=== PATIENT | female | born 1985 | race African-American/Black ===

== ENCOUNTER 2025-08-29 04:50 | Inpatient (IN) | payer SELFPAY ==
[~2025-08-29] VITALS: Ht 167.6 cm; Wt 93.6 kg
--- NOTE | 2025-08-29 04:56 | NUR ---
REPORT TO DELLA RN
[2025-08-29] MEDS: 0.9%NACL 1000ML 1,000 ML IV ONE (05:16)
[2025-08-29 05:26] LABS: IMMATURE GRANULOCYTE ABSOLUTE 0.09 K/uL (0-1); NUCLEATED RED BLOOD CELLS 0.0 % (0.0-0.19); PLATELET COUNT (AUTO) 211 K/uL (130-400); RED BLOOD CELL COUNT(AUTO) 4.21 MIL/uL (4.00-5.50); RED CELL DISTRIBUTION WIDTH 16.5 % (11.0-15.5); WHITE BLOOD COUNT (AUTO) 15.4 K/uL (4.8-10.8)
[2025-08-29 05:45] LABS: ASPARTATE AMINOTRANSFERASE 36.0 U/L (10-37); CREATININE 0.8 mg/dL (0.5-1.0); GLOMERULAR FILTR. RATE CALC 97.0 mL/min (>90); GLUCOSE,RANDOM 152.0 mg/dL (70-105); SODIUM SERUM 131.0 mmol/L (136-145); TOTAL PROTEIN, SERUM 7.8 g/dL (6.0-8.3); UREA NITROGEN, BLOOD 9.0 mg/dL (7-18)
--- NOTE | 2025-08-29 05:58 | ERN ---
General Chief Complaint: Abdominal Pain Stated Complaint: ABD PAIN, CHILLS, N/V Time Seen by MD: 04:52 Source: patient History of Present Illness Initial Comments Patient is a 39-year-old female coming in complaining of right pain. Per patient this pain began two days ago. She states that the pain progressively getting worse. Allergies: Coded Allergies: No Known Allergies (Unverified Allergy, Unknown, 08/29/25) Past Medical History Past Medical History: CVA, Diabetes-Type II, High Cholesterol, Hypertension Past Surgical History: Bariatric Surgery, ROS Dictation CONSTITUTIONAL: No chills, no fever, no weakness, no diaphoresis, no malaise. HEAD/FACE: No signs of trauma. EENT: No eye pain, no blurred vision, no tearing, no double vision, no ear pain, no ear discharge, no nose pain, no nasal congestion, no throat pain, no throat swelling, no mouth pain. RESPIRATORY: No cough, no orthopnea, no SOB, no stridor, no wheezing. CARDIOVASCULAR: No chest pain, no edema, no palpitations, no syncope. GASTROINTESTINAL/ABDOMINAL: abdominal pain, no constipation, no diarrhea, nausea, no vomiting. GENITOURINARY: No abnormal discharge, no dysuria, no frequent urination, no hematuria. No complaints of pain in the genitals. MUSCULOSKELETAL: No back pain, no gout, no joint pain, no joint swelling, no muscle pain, no muscle stiffness, no neck pain. INTEGUMENTARY: No change in color, no change in hair/nails, no dryness, no lesion, no lumps, no rash. NEUROLOGICAL/PSYCH: No anxiety, not depressed, no emotional problem, no headache, no numbness, no pre-existing deficit, no history of seizures, no tremors, no weakness. HEMATOLOGIC/LYMPHATIC: Not anemic, no history of blood clots, no apparent bleeding, no bruising, glands not swollen. All Systems Negative, Except as Noted. Physical Exam Physical Exam Dictation VITAL SIGNS: Reviewed. GENERAL APPEARANCE: Alert, oriented x3, no acute distress, obese. HEAD AND FACE: Non-traumatic. EYES: PERRL, pink conjunctivas, eyelid no trauma, anterior chamber clear. EARS: Pinnas intact and no signs of trauma or erythema. Ear canals clear and no discharge. TMs no erythema. NOSE: No discharge, no bleeding. OROPHARYNX: Mouth normal, teeth no caries, tongue pink. Pharynx clear, no erythema. Tonsils no exudates, no abscesses noted. Mucous membrane moist. NECK: Supple, non-tender, no thyromegaly, no masses, no JVD, no bruits. BREAST: Deferred. CHEST: No tenderness, no crepitus, no paradoxical movement, no retractions. LUNGS: Clear, well-ventilated, symmetric, no rales, no wheezing, no rhonchi, no stridor, good breath sounds bilaterally. HEART: Regular rate, regular rhythm, no murmur, no gallops. VASCULAR: No peripheral edema. ABDOMEN: Soft, positive bowel sounds, nondistended, no guarding, ruq tenderness, no rebound, no masses no hepatomegaly, no splenomegaly, no Lopez's sign, no hernias. RECTAL: Deferred. GENITAL: Deferred. NEUROLOGICAL: Normal speech, gross motor function intact, gross sensory function intact. MUSCULOSKELETAL: Neck nontender, full range of motion, back nontender, full range of motion. EXTREMITIES: Nontender, full range of motion. SKIN: Color pink, dry, no turgor, no rash, no lacerations, no abrasions, no contusions. LYMPHATICS: Deferred. Results Laboratory and Microbiology Lab and Micro Result Laboratory Tests Test 08/29/25 04:56 08/29/25 05:06 08/29/25 05:09 Magnesium Level 1.50 mg/dL (1.80-2.40) L White Blood Count 15.4 K/uL (4.8-10.8) H Red Blood Count 4.21 MIL/uL (4.00-5.50) Hemoglobin 14.5 g/dL (12.0-16.0) Hematocrit 40.9 % (36-48) Mean Corpuscular Volume 97.1 fL (79-99) Mean Corpuscular Hemoglobin 34.4 pg (27.0-33.0) H Mean Corpuscular Hemoglobin Concent 35.5 g/dL (32.0-36.0) Red Cell Distribution Width 16.5 % (11.0-15.5) H Platelet Count 211 K/uL (130-400) Mean Platelet Volume 10.4 fL (7.5-10.5) Immature Granulocyte % (Auto) 0.6 % (0-1) Neutrophils (%) (Auto) 71.7 % (40.0-77.0) Lymphocytes (%) (Auto) 19.5 % (21.0-51.0) L Monocytes (%) (Auto) 7.6 % (3.0-13.0) Eosinophils (%) (Auto) 0.3 % (0.0-8.0) Basophils (%) (Auto) 0.3 % (0.0-5.0) Neutrophils # (Auto) 11.0 K/uL (1.8-7.7) H Lymphocytes # (Auto) 3.0 K/uL (1.0-4.8) Monocytes # (Auto) 1.2 K/uL (0.1-1.0) H Eosinophils # (Auto) 0.05 K/uL (0.00-0.70) Basophils # (Auto) 0.04 K/uL (0.00-0.20) Absolute Immature Granulocyte (auto 0.09 K/uL (0-1) Nucleated Red Blood Cells 0.0 % (0.0-0.19) Sodium Level 131 mmol/L (136-145) L Potassium Level 3.0 mmol/L (3.5-5.1) *L Chloride Level 91 mmol/L (101-111) L Carbon Dioxide Level 30 mmol/L (21-32) Blood Urea Nitrogen 9 mg/dL (7-18) Creatinine 0.8 mg/dL (0.5-1.0) Glomerular Filtration Rate Calc 97 mL/min (>90) Random Glucose 152 mg/dL (70-105) H Total Calcium 9.0 mg/dL (8.5-10.1) Total Bilirubin 1.7 mg/dL (0.2-1.0) H Aspartate Amino Transf (AST/SGOT) 36 U/L (10-37) Alanine Aminotransferase (ALT/SGPT) 34 U/L (12-78) Alkaline Phosphatase 75 U/L (50-136) Total Protein 7.8 g/dL (6.0-8.3) Albumin 3.6 g/dL (3.5-5.0) Lipase 178 U/L (16-77) H Urine Color DARK-YELLOW (YELLOW) Urine Appearance CLEAR (CLEAR) Urine pH 6.0 (5.0-8.0) Urine Specific [place] 1.038 (1.001-1.031) Urine Protein 20 mg/dL (NEGATIVE) H Urine Glucose (UA) NEGATIVE mg/dL (NEGATIVE) Urine Ketones 5 mg/dL (NEGATIVE) H Urine Occult Blood NEGATIVE (NEGATIVE) Urine Nitrate NEGATIVE (NEGATIVE) Urine Bilirubin 0.5 mg/dL (NEGATIVE) H Urine Urobilinogen 4.0 mg/dL (0.2-1.0) H Urine Leukocyte Esterase NEGATIVE Christiano/uL Urine RBC 0-1 /HPF (0-1) Urine WBC 2-5 /HPF (0-1) H Urine Squamous Epithelial Cells RARE /HPF (0-2) Urine Bacteria RARE /HPF (None Seen) Urine Hyaline Casts 2-5 /LPF (0-1 /LPF) H Urine Other Casts 1 /LPF (None Seen) Urine HCG, Qualitative NEGATIVE (NEGATIVE) Labs Reviewed?: Yes EKG/XRAY/US/CT/MRI Ultrasound Comment Right upper quadrant- distended gallbladder with cholelithiasis MDM MDM: Differential diagnosis:cholecystitis, ruq pain , Rationale: Tests considered and ordered secondary to shared decision making include: Previous outside records reviewed: Old ER visits. Risk of complication and/or morbidity or mortality of patient management: None Medications-Per medication reconciliation Need for hospitalization: Patient does meet criteria for hospitalization. Need for emergency major/minor surgery: No There are no social concerns with this patient. Prescription drug management Prescriptions will include symptomatic care Patient's prior external medical records from other ER visits were reviewed by me as indicated. Prior testing and results from previous visits were reviewed. Prior tests were taken into account with medical decision making and resource utilization, independent historian/historians were used to obtain complete medical history. I independently interpreted the test that were performed, results were reviewed by me and considered findings on radiology if ordered. Medical management and examination interpretation discussions were had by me with other qualified healthcare professionals as indicated for the patient's care. Patient will be admitted under the care of hospitalist group ED Course Orders Procedure Category Date Status Time Cbc With Differential LAB 08/29/25 Complete 04:57 Comprehensive LAB 08/29/25 Complete Metabolic Panel 04:57 ,Urine Test LAB 08/29/25 Complete 04:57 Urinalysis Profile LAB 08/29/25 Complete 04:57 Us Abdominal Ruq\Ltd US 08/29/25 Resulted 04:57 Lipase LAB 08/29/25 Complete 04:57 Pantoprazole 40mg Inj PHA 08/29/25 Complete (Protonix 40mg Inj 05:30 0.9%Nacl 1000ml (Ns PHA 08/29/25 Complete 1000ml) 05:30 Potassium Bicarb/Cit PHA 08/29/25 Complete Ac 25meq (K-Lyte Ta 06:00 Magnesium LAB 08/29/25 Complete 05:51 Zosyn 3.375gm+Ns 50ml PHA 08/29/25 Complete (Zosyn 3.375gm+Ns 06:00 Ondansetron 4mg Inj PHA 08/29/25 Complete (Zofran 4mg Inj) 06:00 Hydromorphone 0.5mg PHA 08/29/25 Complete Syg (Dilaudid 0.5mg 06:00 Blood Cult PINEDA 08/29/25 In Process 06:17 Current Medications Medications (Trade) Dose Ordered Sig/Loretta Route PRN Reason Start Time Stop Time Status Last Admin Dose Admin Hydromorphone HCl (DiLAUDid 0.5MG INJ) 0.5 mg ONCE ONCE IM 08/29/25 06:00 08/29/25 06:01 DC 08/29/25 06:02 Ondansetron HCl (zoFRAN 4MG INJ) 4 mg ONCE ONCE IVP 08/29/25 06:00 08/29/25 06:01 DC 08/29/25 06:01 Pantoprazole Sodium (PROTonix 40MG INJ) 40 mg ONCE ONCE IVP 08/29/25 05:30 08/29/25 05:31 DC 08/29/25 05:16 Piperacillin Sod/ Tazobactam Sod (Zosyn 3.375gm+NS 50ml) 3.375 gm ONCE ONCE IV 08/29/25 06:00 08/29/25 06:01 DC Potassium Bicarbonate (K-Lyte Tablet Eff 25 Meq Tablet.eff) 50 meq ONCE ONCE PO 08/29/25 06:00 08/29/25 06:01 DC 08/29/25 06:01 Sodium Chloride 1,000 ml @ 0 mls/hr ONCE ONCE IV 08/29/25 05:30 08/29/25 05:31 DC 08/29/25 05:16 Vital Signs Date Time Temp Pulse Resp B/P (MAP) Pulse Ox O2 Delivery O2 Flow Rate FiO2 08/29/25 06:00 98.2 104 22 154/95 99 Room Air* 0 21 08/29/25 04:52 98.4 120 20 142/87 100 Room Air DX & DISP Disposition: Inpatient Decision to Admit Time: 06:51 Departure Impression: Primary Impression: Cholecystitis Additional Impression: Cholelithiasis Condition: Stable Referrals: NONE (PCP) ЕКАТЕРИНА MARTINES MD Aug 29, 2025 05:58
[2025-08-29] MEDS: ZOSYN 3.375GM +NS 50ML IV ONE (06:01)
[2025-08-29 06:21] LABS: APPEARANCE,URINE CLEAR (CLEAR); GLUCOSE, URINE (UA) NEGATIVE (NEGATIVE); LEUKOCYTE ESTERASE ,URINE NEGATIVE Leu/uL (NEGATIVE); NITRATE,URINE NEGATIVE (NEGATIVE); OCCULT BLOOD,URINE NEGATIVE (NEGATIVE)
[2025-08-29 06:30] LABS: HCG,QUALITATIVE URINE NEGATIVE (NEGATIVE)
[2025-08-29 06:31] LABS: ADD UA MICROSCOPIC YES
[2025-08-29 06:32] LABS: OTHER CASTS, URINE 1 /LPF (None Seen); SQUAMOUS EPITHELIAL CELL,UR RARE /HPF (0-2)
--- NOTE | 2025-08-29 06:47 | HMCIMG ---
EXAM: US Abdomen, Right Upper Quadrant. CLINICAL HISTORY: Abdominal Pain TECHNIQUE: Right upper quadrant sonography performed with image documentation. COMPARISON: None provided. FINDINGS: The evaluation is limited due to bowel gas. LIVER: The liver is enlarged, measuring 19.2 cm in length, and demonstrates diffuse increased echogenicity, suggestive of fatty infiltration. The main portal vein is patent and demonstrates hepatopetal flow. GALLBLADDER: The gallbladder is distended and demonstrates tiny echogenic foci, which may represent sludge/sludge balls or tiny calculi. The gallbladder wall is within normal limits, measuring 2 mm. No pericholecystic fluid is demonstrated. The sonographic Lopez's sign is positive as per the Technologist's note. COMMON BILE DUCT: No dilation. Measures 5 mm. PANCREAS: The pancreas is obscured by bowel gas. RIGHT KIDNEY: Unremarkable. Normal renal contours. No renal mass or calculus. No hydronephrosis. Right kidney measures 10.7 x 3.7 x 5.1 cm. IMPRESSION: A distended gallbladder with sludge or tiny calculi without sonographic features of acute cholecystitis. Positive sonographic Lopez sign as per the Technologist's note, of unclear significance. Suggest clinical correlation, follow-up, or further evaluation as clinically indicated. Hepatomegaly with moderate fatty change. /[place]
[2025-08-29] MEDS ORDERED: DEXTROSE 50%-WATER 50 ML DISP.SYRIN IV PRN (07:00)
[2025-08-29] MEDS ORDERED: PoTASSium chl 10% ELIXIR 20MEQ 20 MEQ/15 ML UDCUP PO PRN (07:00)
[2025-08-29] MEDS ORDERED: GLUCAGON 1MG KIT 1 MG ML IM PRN (07:00)
--- NOTE | 2025-08-29 07:32 | NUR ---
REPORT RECEIVED FROM HEAVEN WOLF
--- NOTE | 2025-08-29 07:34 | NUR ---
DR SALCEDO CURRENTLY AT BEDSIDE.
[2025-08-29 07:57] LABS: AMPHET/METH SCREEN,URINE NEGATIVE (NEGATIVE); BARBITURATE SCREEN, URINE NEGATIVE (NEGATIVE); CANNABINOID SCREEN,URINE POSITIVE (NEGATIVE); COCAINE SCREEN,URINE NEGATIVE (NEGATIVE)
--- NOTE | 2025-08-29 08:00 | NUR ---
PT TO CT BY MARCELLE
--- NOTE | 2025-08-29 08:09 | NUR ---
DR GOODEN JUST STOPPED BY TO SEE THE PT. HE WAS INFORMED CURRENTLY IN CT. HE STATED HE WOULD SEE THE PT ON THE FLOOR.
--- NOTE | 2025-08-29 08:15 | NUR ---
PT JUST RETURNED FROM CT SCAN
--- NOTE | 2025-08-29 08:33 | HP ---
History of Present Illness Reason for Visit: Sick for a week thought I had the flu right-sided pain radiating History of Present Illness 39-year-old female who comes in with one week history of on and off pain to the right side radiating around to the back. Patient recalls the pain being associated with meals and stating that she noticed it especially when she had battered fish sticks in the air fire. Pain lasted for hours and has been going on for days the past week. She got to a point where she could not stand the pain. She sought the emergency room for care this morning at 4:00 a.m.. She has also had nausea and vomiting associated with his pain as well as fever and chills. Patient states he has not had this kind of pain before. Past Medical History Patient History: Cardiovascular disease FATHER Diabetes mellitus BROTHER SISTER ADDITIONAL PAST MEDICAL HISTORY: [Patient takes lisinopril 30 mg daily and hydrochlorothiazide unsure of the mg for blood pressure. She controls her di abetes with diet. He states her last A1c was 5.5.] SOCIAL HISTORY: [Nonsmoker and nondrinker] SURGICAL HISTORY: [She has had gastric bypass in 2021, she has had three C- sections one and 2006 one in 2010 one in 2014 and then a last in 2019. She has had three girls and a boy. She has also had lysis of adhesions as wel l] Review of Systems General: Fever, Chills; No Night Sweats, No Fatigue; Malaise; No Appetite, No Other HEENT: No Head Aches, No Visual Changes, No Eye Pain, No Ear Pain; Dysphasia, Sinus Congestion, Post Nasal Drip; No Sore Throat; Other Pulmonary: No Dyspnea, No Cough Cardiovascular: No: Chest Pain Gastrointestinal: Nausea, Vomiting, Abdominal Pain, Diarrhea, Constipation, Melena, Hematochezia, Other Genitourinary: No Dysuria, No Frequency, No Incontinence, No Hematuria, No Retention, No Other Musculoskeletal: back pain; No: other, neck pain, shoulder pain, arm pain, hand pain, leg pain, foot pain Allergies: Coded Allergies: No Known Allergies (Unverified Allergy, Unknown, 08/29/25) Scheduled Gabapentin (Gabapentin), 3 CAP PO TID, (Reported) Hydrochlorothiazide (Hydrochlorothiazide), 5 MG PO DAILY, (Reported) Hydroxyzine HCl (Hydroxyzine HCl), 1 TAB PO BID, (Reported) Lisinopril (Lisinopril), 1 TAB PO BID, (Reported) Exam Vital Signs Vital Signs Date Time Temp Pulse Resp B/P (MAP) Pulse Ox O2 Delivery O2 Flow Rate FiO2 08/29/25 06:00 98.2 104 22 154/95 99 Room Air* 0 21 General Appearance: Alert, Oriented X3, Cooperative, mild distress HEENT: Atraumatic, PERRLA, EOMI, Mucous membr. moist/pink Respiratory: Clear to auscultation, Normal air movement, NL respiratory effort Cardiovascular: Regular rate, Regular rhythm, Normal S1, Normal S2 Abdominal: Normal bowel sounds, Soft, No tenderness Extremities: No clubbing, No cyanosis, No edema, Normal pulses Skin: No rashes, No breakdown Psych/Mental Status: Mental status NL, Other (tearful) Assessment/Plan ASSESSMENT: [ One. Pancreatitis likely due to gallstones Positive urine drug screen for marijuana Insomnia Right upper quadrant pain Hypomagnesemia Elevated lipase consistent with diagnosis 1. Hypertension history GERD history Hypokalemia Leukocytosis Anorexia Socioeconomic stressors] PLAN: [ Keep patient NPO for now Jonna fluids for hydration General surgery consultation Pain control and DVT prophylaxis Orders to follow as necessary Monitor the patient's blood pressures we will resume home medications once she is taking by mouth] QUINCY SALCEDO MD Aug 29, 2025 08:33
--- NOTE | 2025-08-29 10:14 | NUR ---
JUST NOW ASSIGNED BED 315 BY DOCUMENT EXAMINER Wallace PATTERSON RN
[2025-08-29] MEDS: 0.9%NACL 1000ML 1,000 ML IV SCH (10:28)
--- NOTE | 2025-08-29 10:38 | NUR ---
ADDITIONAL H/P C SECT X3 LAP NASIM STATES DOES NOT HAVE HIGH CHOLESTEROL
[2025-08-29 10:55] VITALS: BP 154/89; PULSE 112; RESP 18; TEMP 97.7; O2SAT 97
--- NOTE | 2025-08-29 10:55 | NUR ---
PATIENT ARRIVED TO ROOM 315. AOX4, AMBULATED TO BED. CALL LIGHT WITHIN REACH. BED LOWERED AND LOCKED.
[2025-08-29 11:26] LABS: SARS-CoV-2, RNA, NAAT NEGATIVE SARS CoV-2 (NEGATIVE)
[2025-08-29 11:30] LABS: INFLUENZA TYPE A Negative For Type A (NEGATIVE); INFLUENZA TYPE B Negative For Type B (NEGATIVE)
--- NOTE | 2025-08-29 11:33 | HMCIMG ---
Name of Examination: CT Abdomen and Pelvis Without Contrast Clinical History: Abdominal pain. Comparison: Compared with limited right upper quadrant sonography performed earlier the same day at 04:19 hours, which demonstrated cholelithiasis without sonographic evidence of cholecystitis and hepatomegaly with moderate fatty infiltration. Radiation Dose: CTDIvol: 17.5 mGy. Total DLP: 1038.30 mGycm. Technique: Non-contrast CT images of the abdomen and pelvis were obtained in axial planes with multiplanar reformations. Findings: Lung Bases: No pleural effusions are identified. Liver: The liver is enlarged, measuring approximately 21.7 cm in craniocaudal dimension, with diffuse fatty infiltration. No focal hepatic lesion is identified on this non-contrast study. Gallbladder and Biliary System: The gallbladder is mildly overdistended, measuring up to 4.9 cm in caliber. The gallbladder wall measures approximately 2.3 mm in thickness. No pericholecystic fluid is seen. No biliary ductal dilatation is identified. Pancreas: The pancreas appears edematous with an indistinct contour. The pancreatic body measures approximately 3.0 cm and the tail measures approximately 2.6 cm in thickness. The head and uncinate process are relatively preserved without significant enlargement. There is surrounding peripancreatic fat stranding, with associated thickening of the anterior and posterior perirenal fascia as well as the lateral conal fascia on the left side. No peripancreatic collection. No pancreatic ductal dilatation or intraductal calculi are identified. Spleen: The spleen is unremarkable. Adrenal Glands: There is a fat-density nodule in the right adrenal gland measuring approximately 1.8 2.0 3.1 cm, consistent with an adrenal myelolipoma. The left adrenal gland is unremarkable. Kidneys and Retroperitoneum: The kidneys are unremarkable. No hydronephrosis or renal calculi are identified. No retroperitoneal lymphadenopathy is seen. Bowel and Appendix: Postsurgical changes of prior gastric bypass surgery are noted, with the gastrojejunal anastomosis appropriately positioned and demonstrating unremarkable morphology, without evidence of leakage or obstruction. A few fluid-filled small bowel loops are present, without significant dilatation, measuring up to approximately 2.0 cm, likely representing ileus. The appendix is unremarkable (series 2, image 67/110). Mesentery and Aorta: No ascites or abnormal mesenteric lymphadenopathy is identified. The abdominal aorta is unremarkable. Pelvic Viscera: The uterus is unremarkable. The left adnexa demonstrates a simple-appearing cyst measuring approximately 1.7 cm. The right adnexa is unremarkable. Abdominal Wall: A small fat-containing umbilical hernia is present, measuring approximately 0.5 cm. Bones: Small central disc protrusions are noted at the L4L5 and L5S1 levels, causing mild thecal sac indentation. Impression: * Imaging findings consistent with acute pancreatitis, manifested by pancreatic enlargement, indistinct pancreatic margins, and surrounding peripancreatic inflammatory changes, without evidence of pancreatic ductal dilatation or calculi. Recommend laboratory and clinical parameters correlation. * Hepatomegaly with diffuse fatty infiltration of the liver. * Mild gallbladder overdistension with minimal wall thickening, likely reactive in the setting of pancreatitis, without CT evidence of acute cholecystitis. * Right adrenal myelolipoma measuring up to 2.1 cm. * Postsurgical changes of prior gastric bypass surgery without evidence of obstruction or leak. * Mild small bowel ileus. * Small left adnexal cyst and tiny fat-containing umbilical hernia. Overall, when compared with the limited right upper quadrant sonography performed earlier the same day at 04:19 hours, the current CT demonstrates interval development of imaging features consistent with acute pancreatitis. /[place]
[2025-08-29] MEDS: ZOSYN 3.375GM+NS 50ML 50 ML IV SCH (13:41)
[2025-08-29 16:00] VITALS: BP 127/70; PULSE 94; RESP 18; TEMP 97.8
--- NOTE | 2025-08-29 17:13 | HMCIMG ---
EXAM: CR Chest, 1 View. CLINICAL HISTORY: Congestion. COMPARISON: None provided. FINDINGS: LUNGS: There is no mass, infiltrate, or acute pulmonary abnormality. PLEURAL SPACES: No pleural effusion or pneumothorax. MEDIASTINUM: Cardiac size and mediastinal contours are within normal limits. BONES: No acute osseous abnormality. IMPRESSION: 1. No acute cardiopulmonary findings. /[place]
--- NOTE | 2025-08-29 18:18 | HMCIMG ---
Examination Hepatobiliary study History stones (Hx) / stones, Statics (DICOM Hx) (DICOM Hx) Technique 6.5 mCi Tc-99m mebrofenin were administered intravenously followed by acquisition of planar images of the abdomen. Findings Following administration of radiotracer, there is prompt appearance of normal hepatic contours, followed by appearance of activity in unremarkable appearing bile ducts. There is prompt filling of the gallbladder. The study is negative for acute cholecystitis. IMPRESSION: Negative HIDA study. No evidence of cholecystitis. /[place]
[2025-08-29 20:00] VITALS: BP 130/91; PULSE 77; RESP 16; TEMP 97.8; O2SAT 94
[2025-08-30] VITALS (7 sets, daily range): BP systolic 116–134; BP diastolic 66–83; PULSE 74–84; RESP 16–18; TEMP 97.7–98; O2SAT 98–99
[2025-08-30 05:05] LABS: IMMATURE GRANULOCYTE ABSOLUTE 0.04 K/uL (0-1); NUCLEATED RED BLOOD CELLS 0.0 % (0.0-0.19); PLATELET COUNT (AUTO) 145 K/uL (130-400); RED BLOOD CELL COUNT(AUTO) 3.25 MIL/uL (4.00-5.50); RED CELL DISTRIBUTION WIDTH 16.7 % (11.0-15.5); WHITE BLOOD COUNT (AUTO) 7.5 K/uL (4.8-10.8)
[2025-08-30 05:43] LABS: ASPARTATE AMINOTRANSFERASE 32.0 U/L (10-37); CREATINE KINASE, TOTAL 20.0 U/L (21-232); CREATININE 0.8 mg/dL (0.5-1.0); GLOMERULAR FILTR. RATE CALC 97.0 mL/min (>90); GLUCOSE,RANDOM 76.0 mg/dL (70-105); SODIUM SERUM 142.0 mmol/L (136-145); TOTAL PROTEIN, SERUM 6.3 g/dL (6.0-8.3); UREA NITROGEN, BLOOD 11.0 mg/dL (7-18)
[2025-08-30] MEDS: MAGNESIUM 2GM PREMIX 50ML 50 ML IV PRN (09:45)
[2025-08-30] MEDS ORDERED: GABA-529 PO (14:57)
[2025-08-30] MEDS ORDERED: HYDR-3421 PO (15:01)
[2025-08-30] MEDS ORDERED: LISI30TA4 PO (15:01)
[2025-08-30] MEDS ORDERED: HYDR12.54 PO (15:01)
--- NOTE | 2025-08-30 16:48 | CONS ---
CONSULT NOTE: This is a 39-year-old female status post gastric bypass more than 10 years ago that came to the hospital because severe abdominal pain nausea and vomiting. Workup in emergency room and shows the patient had a distended gallbladder with stones. HIDA scan has been negative. The patient is still have tenderness in the right upper quadrant and radiated to the back. I have discussed with the patient and recommended to have surgery we will do the procedure tomorrow she will be NPO after midnight and we will give a clear liquids today. The patient understood the management plan ELIA GOODEN MD Aug 30, 2025 16:48
[2025-08-30] MEDS: PoTASSium chloRIDE 20MEQ ER 20 MEQ ERTAB PO PRN (17:13)
[2025-08-31] VITALS (28 sets, daily range): BP systolic 106–156; BP diastolic 58–95; PULSE 60–103; RESP 15–22; TEMP 97–98.9; O2SAT 91
[2025-08-31] MEDS ORDERED: LORA0.5T83 PO (01:43)
--- NOTE | 2025-08-31 07:24 | NUR ---
INFORMED BY PRE-[facility] THAT PATIENT'S SURGERY IS MOVED UP TO THE AM. ASSISTED TO SHOWER PRIOR LEAVING TO THE OR
[2025-08-31] MEDS ORDERED: LIDOCAINE PF 100MG/5ML (2%) SYRINGE 5ML ONE (07:38)
[2025-08-31] MEDS ORDERED: SUCCINYLCHOLINE CHLORIDE 20 MG/ML 10 ML VIAL ONE (07:38)
[2025-08-31] MEDS ORDERED: MIDAZOLAM HCL 1 MG/ML 2ML VIAL ONE (07:38)
--- NOTE | 2025-08-31 07:53 | NUR ---
TAKEN OFF UNIT IN HOSPITAL BED TO PRE-OP
[2025-08-31] MEDS: INDOCYANINE GREEN 25 MG VIAL IJ ONE ×2 (08:25→08:50)
[2025-08-31] MEDS ORDERED: NEOSTIGMINE METHYLSULFATE 1MG/ML IV ONE (09:59)
[2025-08-31] MEDS ORDERED: GLYCOPYRROLATE 0.2 MG/ML 5 ML VIAL ONE (09:59)
--- NOTE | 2025-08-31 10:06 | OP ---
Operative Note: DATE OF PROCEDURE: 08/31/25 SURGEON: ELIA GOODEN MD ANATOMY PROFESSOR: [] ANESTHESIA: [] General ANESTHESIOLOGIST/TECHNICAL DIRECTOR: [] PREOPERATIVE DIAGNOSIS: [] Acute cholecystitis POSTOPERATIVE DIAGNOSIS: [] The same SYNOPSIS: [] PROCEDURE: [] Laparoscopic cholecystectomy ESTIMATED BLOOD LOSS: [] 30 cc INDICATIONS: [] DESCRIPTION OF PROCEDURE: [] With the patient prepped in the usual fashion a supraumbilical incision was additionally directed to meet with placement of the trocar and abdomen insufflated. Three 5 mm trochars were placed in the right upper quadrant under direct vision. The gallbladder was exposed adhesions were taken down and I dissected triangle of [place]. The cystic duct was difficult to it identified. After careful dissection I was able to identify the cystic duct and cystic artery. The cystic duct was large and I decided to transected with a stapler. A 12 mm trocar was placed in the epigastric area and then we transected with a white stapler. I used a couple of clips in order to completed transection of the proximal cystic duct. The cystic artery was double clipped and divided. I took the gallbladder from the liver using cautery dissection and after removed from the liver bed I placed an in a bag. I cauterized the liver bed and Iafter adequate hemostasis and after irrigation I removed all the trochars under direct vision and the gallbladder was removed from the supraumbilical incision. After removing the gallbladder I placed interrupted [id number] Vicryl's and the fascia. All incisions were closed with oxana Patient was stable at the end of the procedure ELIA GOODEN MD Aug 31, 2025 10:06
[2025-08-31] MEDS ORDERED: PROMETHAZINE HCL 25 MG/ML 1ML AMPULE IM PRN (11:00)
--- NOTE | 2025-08-31 11:30 | NUR ---
RETURNED FROM PACU, ALERT AND AWAKE; IN NO DISTRESS. [address] TO ABDOMEN, COVERED WITH BANDAID
--- NOTE | 2025-08-31 13:21 | EKG ---
[facility] Test Date: 2025-08-31 Test Time: 12:48:46 Pat Name: JAN SAM Department: [facility] Room: 315 1 Gender: F Layout Inspector: [id number] : 1985 Requested By: KADI ANDREWS Order Number: [id number] Reading MD: Yadira Joaquin Measurements Intervals [place] Rate: 73 P: 29 ID: [id number] QRS: 4 QRSD: 84 T: 12 QT: 432 QTc: 475 Interpretive Statements Normal sinus rhythm Possible Anterior infarct , age undetermined No previous ECG available for comparison Electronically Signed On 08-31-2025 16:48:10 DATABASE ENGINEER by Yadira Joaquin Please click the below link to view image of tracing.
--- NOTE | 2025-08-31 16:07 | PN ---
[facility] PROGRESS NOTE Date of Service: Aug 31, 2025 Time of Service: 15:52 SUBJECTIVE: This is a 39-year-old female who comes in with one week history of on and off pain to the right side radiating around to the back. Patient recalls the pain being associated with meals and stating that she noticed it especially when she had battered fish sticks in the air fire. Pain lasted for hours and has been going on for days the past week. She got to a point where she could not stand the pain. She sought the emergency room for care this morning at 4:00 a.m.. She has also had nausea and vomiting associated with his pain as well as fever and chills. Patient states he has not had this kind of pain before. 08/31/25 Patient was seen and evaluated at the bedside this afternoon. She complains of abdominal pain 7/10. She complains of mild nausea. She had cholecystectomy this morning performed by Dr. Rodríguez. Currently her vitals are stable and she is clinically fine. She has been started on clear liquids and diet will be advanced in the evening. REVIEW OF SYSTEMS CONSTITUTIONAL: Denies fevers, chills, or night sweats. No unintentional weight loss reported. NEUROLOGICAL: Motor and Sensory function is intact. CARDIOVASCULAR: Denies any exertional angina, dyspnea on exertion, orthopnea, paroxysmal nocturnal dyspnea, palpitations, claudication. PULMONARY: Denies any shortness of breath, cough, phlegm/sputum, hemoptysis, pleuritic chest pain. GASTROINTESTINAL: Complains of abdominal pain 7/10 in intensity. Also has mild nausea. GENITOURINARY: Denies frequency, urgency, nocturia, hematuria or incontinence. EXTREMITIES: No cyanosis, clubbing or edema. PHYSICAL EXAM GENERAL APPEARANCE: The patient is awake, alert, and oriented, in no acute cardiopulmonary distress. NEUROLOGICAL: Motor is 5/5 in bilateral upper and lower extremities proximal to distal. No sensory deficits. LUNGS: Absence of any rales, rhonchi or any wheezing. CARDIOVASCULAR: Regular. S1 and S2 normal. No appreciable rubs, murmurs or gallops. ABDOMEN: Soft, nontender, and nondistended. There is mild tenderness around the surgical site. EXTREMITIES: Non-edematous and not cyanotic. No clubbing. Good capillary refill. Vital Signs (last 8hr) Date Time Temp Pulse Resp B/P (MAP) Pulse Ox O2 Delivery O2 Flow Rate FiO2 08/31/25 13:30 70 16 149/95 99 08/31/25 13:00 89 16 144/84 100 08/31/25 12:30 72 16 141/85 99 08/31/25 12:15 71 16 138/84 99 Room Air 08/31/25 12:00 97.5 70 16 144/90 100 Room Air 08/31/25 11:45 70 16 142/91 100 Room Air 08/31/25 11:30 97.5 70 16 144/90 100 Room Air 08/31/25 11:25 97.2 64 17 146/89 100 Nasal Cannula 2.0 08/31/25 11:20 63 17 140/88 100 Nasal Cannula 2.0 08/31/25 11:15 63 17 152/84 100 Nasal Cannula 2.0 08/31/25 11:10 63 15 150/89 100 Nasal Cannula 2.0 08/31/25 11:05 72 16 149/88 100 Nasal Cannula 2.0 08/31/25 11:00 60 15 150/89 100 Nasal Cannula 2.0 08/31/25 10:55 63 16 148/90 100 Nasal Cannula 2.0 08/31/25 10:50 67 17 145/81 100 Nasal Cannula 2.0 08/31/25 10:45 64 17 147/90 100 Nonrebreathing Mask 10.0 08/31/25 10:40 67 18 144/89 100 Nonrebreathing Mask 10.0 08/31/25 10:35 67 20 156/90 100 Nonrebreathing Mask 10.0 08/31/25 10:30 71 21 147/89 100 Nonrebreathing Mask 10.0 08/31/25 10:25 97.0 71 22 154/81 100 Nonrebreathing Mask 10.0 08/31/25 08:00 99.0 65 18 118/65 97 Room Air 21 08/31/25 08:00 97.7 73 16 135/83 95 Room Air LABS: Laboratory: Test 08/31/25 12:12 08/30/25 15:40 08/30/25 04:54 Range/Units Whole Blood Glucose 109 70-110 MG/DL Potassium Level 3.0 *L 3.5-5.1 mmol/L Lipase 67 16-77 U/L White Blood Count 7.5 # 4.8-10.8 K/uL Red Blood Count 3.25 #L 4.00-5.50 MIL/uL Hemoglobin 11.3 #L 12.0-16.0 g/dL Hematocrit 32.9 L 36-48 % Mean Corpuscular Volume 101.2 H 79-99 fL Mean Corpuscular Hemoglobin 34.8 H 27.0-33.0 pg Mean Corpuscular Hemoglobin Concent 34.3 32.0-36.0 g/dL Red Cell Distribution Width 16.7 H 11.0-15.5 % Platelet Count 145 # 130-400 K/uL Mean Platelet Volume 10.0 7.5-10.5 fL Immature Granulocyte % (Auto) 0.5 0-1 % Neutrophils (%) (Auto) 60.5 40.0-77.0 % Lymphocytes (%) (Auto) 26.3 21.0-51.0 % Monocytes (%) (Auto) 10.6 3.0-13.0 % Eosinophils (%) (Auto) 1.7 0.0-8.0 % Basophils (%) (Auto) 0.4 0.0-5.0 % Neutrophils # (Auto) 4.5 1.8-7.7 K/uL Lymphocytes # (Auto) 2.0 1.0-4.8 K/uL Monocytes # (Auto) 0.8 0.1-1.0 K/uL Eosinophils # (Auto) 0.13 0.00-0.70 K/uL Basophils # (Auto) 0.03 0.00-0.20 K/uL Absolute Immature Granulocyte (auto 0.04 0-1 K/uL Nucleated Red Blood Cells 0.0 0.0-0.19 % Sodium Level 142 136-145 mmol/L Chloride Level 101 101-111 mmol/L Carbon Dioxide Level 30 21-32 mmol/L Blood Urea Nitrogen 11 7-18 mg/dL Creatinine 0.8 0.5-1.0 mg/dL Glomerular Filtration Rate Calc 97 >90 mL/min Random Glucose 76 70-105 mg/dL Lactic Acid Level 1.0 0.8-2.5 mmol/L Total Calcium 8.1 L 8.5-10.1 mg/dL Magnesium Level 1.50 L 1.80-2.40 mg/dL Total Bilirubin 0.9 # 0.2-1.0 mg/dL Aspartate Amino Transf (AST/SGOT) 32 10-37 U/L Alanine Aminotransferase (ALT/SGPT) 27 # 12-78 U/L Alkaline Phosphatase 57 50-136 U/L Ammonia 25 11-32 umol/L Total Creatine Kinase 20 L 21-232 U/L B-Type Natriuretic Peptide < 5 0-100 pg/mL Total Protein 6.3 6.0-8.3 g/dL Albumin 2.7 #L 3.5-5.0 g/dL Amylase Level 24 L 25-115 U/L Procalcitonin 0.27 0.05-0.5 ng/mL Thyroid Stimulating Hormone (TSH) 1.32 0.36-3.74 uIU/mL Free Thyroxine (T4) Direct 1.43 0.76-1.46 ng/dL Free Triiodothyronine (T3) pg/mL 2.51 2.18-3.98 pg/mL Current Medications Medications (Trade) Dose Ordered Sig/Loretta Route PRN Reason Start Time Stop Time Status Last Admin Dose Admin Acetaminophen (TYLenol 325MG TAB) 650 mg Q6H PRN PO MILD PAIN (1-3) 08/29/25 07:00 09/28/25 06:59 Dextrose (D50w) 50 ml AD PRN IV HYPOGLYCEMIA PROTOCOL 08/29/25 07:00 09/28/25 06:59 Fentanyl Citrate (FENTanyl CITRate PF 50 MCG/ 1 ML 2ML VIAL) 25 mcg Q5MIN PRN IVP PAIN LEVEL 7 TO 10 08/31/25 11:00 08/31/25 11:21 DC 08/31/25 10:51 25 MCG Glucagon (Glucagon 1mg Kit) 1 mg AD PRN IM HYPOGLYCEMIA PROTOCOL 08/29/25 07:00 09/28/25 06:59 Heparin Sodium (Porcine) (HEParin 5,000 UNIT VIAL) 5,000 unit BID SQ 08/29/25 09:00 09/28/25 08:59 08/30/25 20:24 5,000 UNIT Hydralazine HCl (APRESOLine 20MG INJ) 10 mg Q6H PRN IV For:SBP above 160;DBP above 90 08/29/25 07:00 09/28/25 06:59 Hydrochlorothiazide (hydroCHLOROthiazide 25MG) 12.5 mg DAILY PO 09/01/25 09:00 10/01/25 08:59 Hydromorphone HCl (DiLAUDid 0.5MG INJ) 0.5 mg Q6H PRN IVP SEVERE PAIN (7-10) 08/29/25 09:30 08/31/25 14:40 DC 08/31/25 00:02 0.5 MG Hydromorphone HCl (DiLAUDid 1MG INJ) 0.5 mg Q6H PRN IVP SEVERE PAIN (7-10) 08/31/25 14:39 09/05/25 14:38 08/31/25 15:03 0.5 MG Ibuprofen (moTRIN) 800 mg Q8H PRN PO MODERATE PAIN (4-6) 08/29/25 07:00 09/28/25 06:59 Insulin Human Regular (humuLIN R 100 UNIT/ML 3ML) INSULIN SLIDING SCAL... ACHS SQ 08/29/25 07:30 09/28/25 07:29 Ketorolac Tromethamine (toRADol) 15 mg Q8H PRN IV MODERATE PAIN (4-6) 08/29/25 07:00 08/29/25 07:03 DC Ketorolac Tromethamine (toRADol) 30 mg AD PRN IV PAIN LEVEL 1 TO 3 08/31/25 11:00 08/31/25 11:21 DC Lisinopril (Prinivil 10mg) 10 mg BID PO 08/31/25 21:00 09/30/25 20:59 Lisinopril (Prinivil 20mg) 20 mg BID PO 08/31/25 21:00 09/30/25 20:59 Magnesium Sulfate 50 ml @ 0 mls/hr PROTOCOL PRN IV other 08/29/25 07:00 09/28/25 06:59 08/30/25 09:45 25 MLS/HR Metoclopramide HCl (regLAN 10MG IV) 10 mg AD PRN IVP NAUSEA/VOMITING 08/31/25 11:00 08/31/25 11:21 DC Miscellaneous Medication (Lisinopril ) 1 tab BID PO 08/31/25 21:00 08/31/25 14:11 DC Morphine Sulfate (morPHINE 2MG SYG) 1 mg Q4H PRN IVP SEVERE PAIN (7-10) 08/29/25 07:00 08/29/25 09:27 DC Morphine Sulfate (morPHINE 2MG SYG) 2 mg AD PRN IVP PAIN LEVEL 4 TO 6 08/31/25 11:00 08/31/25 11:21 DC Naloxone HCl (NARcan 0.4mg/1 mL) 0.1 mg AD PRN IVP RESPIRATORY SYMPTOMS 08/31/25 11:00 08/31/25 11:21 DC Ondansetron HCl (zoFRAN 4MG INJ) 4 mg AD PRN IVP NAUSEA/VOMITING 08/31/25 11:00 08/31/25 11:21 DC Ondansetron HCl (zoFRAN 4MG INJ) 4 mg Q6H PRN IVP NAUSEA/VOMITING 08/29/25 09:30 09/28/25 09:29 08/31/25 00:04 4 MG Oxycodone/ Acetaminophen (perCOCET) 1 tab Q6H PRN PO SEVERE PAIN (7-10) 08/29/25 07:00 08/29/25 07:03 DC Pantoprazole Sodium (PROTonix 40MG INJ) 40 mg DAILY IVP 09/01/25 09:00 10/01/25 08:59 Piperacillin Sod/ Tazobactam Sod 50 ml @ 12.5 mls/hr ZOSY8 IV 08/29/25 13:00 09/08/25 12:59 08/31/25 15:04 12.5 MLS/HR Potassium Chloride 100 ml @ 100 mls/hr AD PRN IV POTASSIUM PROTOCOL 08/29/25 07:00 09/28/25 06:59 Potassium Chloride (K-Dur/Klor-Con 20meq) 20 meq AD PRN PO POTASSIUM PROTOCOL 08/29/25 07:00 09/28/25 06:59 08/30/25 17:13 20 MEQ Potassium Chloride (KCl 10% Elixir 20meq/15ml) 20 meq AD PRN PO POTASSIUM PROTOCOL 08/29/25 07:00 09/28/25 06:59 Promethazine HCl (Phenergan) 25 mg AD PRN IM NAUSEA/VOMITING 08/31/25 11:00 08/31/25 11:21 DC Sodium Chloride 1,000 ml @ 100 mls/hr Q10H IV 08/29/25 07:00 09/28/25 06:59 08/31/25 15:03 100 MLS/HR DIAGNOSTICS / RADIOLOGY: [facility] [address] [place], [place] [id number] IMAGING REPORT Signed PATIENT: JAN SAM MR#: [id number] : 1985 SEX: F AGE: 39 LOCATION: 3CH ORDER 0702 STATUS: ADM IN REPORT#: [id number] SERVICE 0655 REASON: abd pain ORDERING PHYSICIAN: ARTURO COTTO [employer]LEMENTARY [employer] TEACHER PROCEDURE: ABD PEL WO - CT ABDOMEN/PELVIS W/O CONTRAST Name of Examination: CT Abdomen and Pelvis Without Contrast Clinical History: Abdominal pain. Comparison: Compared with limited right upper quadrant sonography performed earlier the same day at 04:19 hours, which demonstrated cholelithiasis without sonographic evidence of cholecystitis and hepatomegaly with moderate fatty infiltration. Radiation Dose: CTDIvol: 17.5 mGy. Total DLP: 1038.30 mGycm. Technique: Non-contrast CT images of the abdomen and pelvis were obtained in axial planes with multiplanar reformations. Findings: Lung Bases: No pleural effusions are identified. Liver: The liver is enlarged, measuring approximately 21.7 cm in craniocaudal dimension, with diffuse fatty infiltration. No focal hepatic lesion is identified on this non-contrast study. Gallbladder and Biliary System: The gallbladder is mildly overdistended, measuring up to 4.9 cm in caliber. The gallbladder wall measures approximately 2.3 mm in thickness. No pericholecystic fluid is seen. No biliary ductal dilatation is identified. Pancreas: The pancreas appears edematous with an indistinct contour. The pancreatic body measures approximately 3.0 cm and the tail measures approximately 2.6 cm in thickness. The head and uncinate process are relatively preserved without significant enlargement. There is surrounding peripancreatic fat stranding, with associated thickening of the anterior and posterior perirenal fascia as well as the lateral conal fascia on the left side. No peripancreatic collection. No pancreatic ductal dilatation or intraductal calculi are identified. Spleen: The spleen is unremarkable. Adrenal Glands: There is a fat-density nodule in the right adrenal gland measuring approximately 1.8 2.0 3.1 cm, consistent with an adrenal myelolipoma. The left adrenal gland is unremarkable. Kidneys and Retroperitoneum: The kidneys are unremarkable. No hydronephrosis or renal calculi are identified. No retroperitoneal lymphadenopathy is seen. Bowel and Appendix: Postsurgical changes of prior gastric bypass surgery are noted, with the gastrojejunal anastomosis appropriately positioned and demonstrating unremarkable morphology, without evidence of leakage or obstruction. A few fluid-filled small bowel loops are present, without significant dilatation, measuring up to approximately 2.0 cm, likely representing ileus. The appendix is unremarkable (series 2, image 67/110). Mesentery and Aorta: No ascites or abnormal mesenteric lymphadenopathy is identified. The abdominal aorta is unremarkable. Pelvic Viscera: The uterus is unremarkable. The left adnexa demonstrates a simple-appearing cyst measuring approximately 1.7 cm. The right adnexa is unremarkable. Abdominal Wall: A small fat-containing umbilical hernia is present, measuring approximately 0.5 cm. Bones: Small central disc protrusions are noted at the L4L5 and L5S1 levels, causing mild thecal sac indentation. Impression: * Imaging findings consistent with acute pancreatitis, manifested by pancreatic enlargement, indistinct pancreatic margins, and surrounding peripancreatic inflammatory changes, without evidence of pancreatic ductal dilatation or calculi. Recommend laboratory and clinical parameters correlation. * Hepatomegaly with diffuse fatty infiltration of the liver. * Mild gallbladder overdistension with minimal wall thickening, likely reactive in the setting of pancreatitis, without CT evidence of acute cholecystitis. * Right adrenal myelolipoma measuring up to 2.1 cm. * Postsurgical changes of prior gastric bypass surgery without evidence of obstruction or leak. * Mild small bowel ileus. * Small left adnexal cyst and tiny fat-containing umbilical hernia. Overall, when compared with the limited right upper quadrant sonography performed earlier the same day at 04:19 hours, the current CT demonstrates interval development of imaging features consistent with acute pancreatitis. /[place] DICTATED BY: ABDIAZIZ EARLY MD DATE: 08/29/25 1231 ELECTRONICALLY SIGNED BY: ABDIAZIZ EARLY MD DATE: 08/29/25 1231 [place] [address] [address] IMAGING REPORT Signed PATIENT: JAN SAM MR#: [id number] : 1985 SEX: F AGE: 39 LOCATION: 3CH ORDER 2 STATUS: ADM IN REPORT#: [id number] SERVICE 2 REASON: stones ORDERING PHYSICIAN: ARTURO COTTO [employer]MENTARY [employer] TEACHER PROCEDURE: HIDAWO - NM HIDA WO EF/CCK Examination Hepatobiliary study History stones (Hx) / stones, Statics (DICOM Hx) (DICOM Hx) Technique 6.5 mCi Tc-99m mebrofenin were administered intravenously followed by acquisition of planar images of the abdomen. Findings Following administration of radiotracer, there is prompt appearance of normal hepatic contours, followed by appearance of activity in unremarkable appearing bile ducts. There is prompt filling of the gallbladder. The study is negative for acute cholecystitis. IMPRESSION: Negative HIDA study. No evidence of cholecystitis. /[place] DICTATED BY: BRAD BERRY Jr., MD DATE: 08/29/251915 ELECTRONICALLY SIGNED BY: BRAD BERRY Jr., MD DATE: 08/29/251915 PROBLEM LIST: Status post cholecystectomy day 0 Acute cholecystitis Hypertension POA ASSESSMENT AND PLAN: Status post cholecystectomy day 0 * Underwent cholecystectomy this morning with Dr. Rodríguez. * At this point she is clinically stable and her vitals are within normal limits * Complains of abdominal pain 7/10 in intensity and mild nausea * She has been started on clear liquid diet and will be advanced to full liquid in the evening * She received 0.5 mg of Dilaudid this afternoon for pain * She has started to ambulate Acute cholecystitis * Initially complained of abdominal pain during the admission * Abdomen pelvis showed mild gallbladder wall distention with minimal wall thickening, likely reactive in the setting of pancreatitis. * Ultrasonography was suggestive of a distended gallbladder with sludge or tiny calculi without sonographic features of acute cholecystitis. Positive sonographic Lopez sign as per the note. Hypertension POA * Patient has been started on home medications lisinopril and hydrochlorothiazide * Closely monitor the blood pressure * Per the patient her blood pressure has been well maintained at home as well Supportive measures * GI prophylaxis via Protonix 40 mg IV daily * Pain Medications as needed * DVT Prophylaxis via heparin 5000 units ATTESTATION BY PHYSICIAN I have seen and examined the patient. I reviewed the documentation, medical decision making, and treatment plan as noted by the resident physician above. I agree with the findings and plan of care. ERICA RUTH MD [facility] MD Aug 31, 2025 16:07
[2025-08-31] MEDS: LISINOPRIL 10 MG TABLET PO SCH (20:12)
[2025-08-31] MEDS: LISINOPRIL 20 MG TABLET PO SCH (20:12)
[2025-08-31] MEDS ORDERED: LISINOPRIL PO SCH (21:00)
[2025-09-01] VITALS: BP 119/85; PULSE 74; RESP 18; TEMP 97.8
[2025-09-01 04:00] VITALS: BP 131/72; PULSE 96; RESP 16; TEMP 97.5
[2025-09-01 05:39] LABS: NUCLEATED RED BLOOD CELLS 0.0 % (0.0-0.19); PLATELET COUNT (AUTO) 164.0 K/uL (130-400); RED BLOOD CELL COUNT(AUTO) 2.92 MIL/uL (4.00-5.50); RED CELL DISTRIBUTION WIDTH 16.3 % (11.0-15.5); WHITE BLOOD COUNT (AUTO) 7.4 K/uL (4.8-10.8)
[2025-09-01 05:55] LABS: CREATININE 0.6 mg/dL (0.5-1.0); GLOMERULAR FILTR. RATE CALC 118.0 mL/min (>90); GLUCOSE,RANDOM 117.0 mg/dL (70-105); LDL DIRECT 63.0 mg/dL (0-99); SODIUM SERUM 134.0 mmol/L (136-145); UREA NITROGEN, BLOOD 5.0 mg/dL (7-18)
[2025-09-01 07:52] VITALS: O2SAT 96
[2025-09-01 08:28] VITALS: BP 115/77; PULSE 86; RESP 14; TEMP 98.1
[2025-09-01 09:38] LABS: ASPARTATE AMINOTRANSFERASE 84.0 U/L (10-37); TOTAL PROTEIN, SERUM 5.9 g/dL (6.0-8.3)
[2025-09-01] MEDS: SIMETHICONE 80 MG TAB.CHEW PO SCH (10:39)
--- NOTE | 2025-09-01 11:43 | NUR ---
DCP:HOME Pt currently lives at home with her kids and ex-. Pt does not have any DME, home health, or provider services. Pt states that he moved to [place] in December but is now being kicked out of her home by her landlord. SW provided pt with community resources for housing and medical attention for her to follow up at [place]. At [place] pt will return home and family/friends can assist with transportation.
[2025-09-01 12:07] VITALS: BP 124/78; PULSE 69; RESP 14; TEMP 97.7
[2025-09-01] MEDS ORDERED: ACET-2079 PO (14:34)
--- NOTE | 2025-09-01 14:52 | DS ---
Discharge Summary Hospital Course Summary: The patient is a 39-year-old female who presented with a one-week history of intermittent right-sided abdominal pain, radiating to the back. The pain was noted to be associated with meals, particularly after eating fried foods, and lasted for several hours at a time. Over the course of the week, the pain p rogressively worsened, prompting the patient to seek emergency care early in the morning on the day of presentation. Her symptoms were associated with nausea, vomiting, fever, and chills. She denied any prior similar episodes. Following evaluation, the patient underwent a cholecystectomy on 08/31/25, performed by Dr. Rodríguez. Postoperatively, she was evaluated at the bedside and reported abdominal pain rated 7/10 with mild nausea. Her vital signs remained stable, and she was clinically stable. Postoperatively, the patient was started on a clear liquid diet, and was advanced as tolerated. On discharge, patient has been counseled on wound care, activity restrictions, dietary advancement and warning signs that should prompt immediate medical attention. She has also been advised on appropriate intake of pain medications, only when required. She will follow up with General surgery as scheduled and with her primary care physician. She is medically stable to be discharged. Funeral Pre Arrangement Counselor(s): General surgery: Dr. Rodríguez Procedure(s): Cholecystectomy [place] [address] [address] IMAGING REPORT Signed PATIENT: JAN SAM MR#: [id number] : 1985 SEX: F AGE: 39 LOCATION: [facility] ORDER [id number] STATUS: ADM IN REPORT#: [id number] SERVICE 0655 REASON: abd pain ORDERING PHYSICIAN: ARTURO COTTO FLEXIBLE MACHINING SYSTEM MACHINIST PROCEDURE: ABD PEL WO - CT ABDOMEN/PELVIS W/O CONTRAST Name of Examination: CT Abdomen and Pelvis Without Contrast Clinical History: Abdominal pain. Comparison: Compared with limited right upper quadrant sonography performed earlier the same day at 04:19 hours, which demonstrated cholelithiasis without sonographic evidence of cholecystitis and hepatomegaly with moderate fatty infiltration. Radiation Dose: CTDIvol: 17.5 mGy. Total DLP: 1038.30 mGycm. Technique: Non-contrast CT images of the abdomen and pelvis were obtained in axial planes with multiplanar reformations. Findings: Lung Bases: No pleural effusions are identified. Liver: The liver is enlarged, measuring approximately 21.7 cm in craniocaudal dimension, with diffuse fatty infiltration. No focal hepatic lesion is identified on this non-contrast study. Gallbladder and Biliary System: The gallbladder is mildly overdistended, measuring up to 4.9 cm in caliber. The gallbladder wall measures approximately 2.3 mm in thickness. No pericholecystic fluid is seen. No biliary ductal dilatation is identified. Pancreas: The pancreas appears edematous with an indistinct contour. The pancreatic body measures approximately 3.0 cm and the tail measures approximately 2.6 cm in thickness. The head and uncinate process are relatively preserved without significant enlargement. There is surrounding peripancreatic fat stranding, with associated thickening of the anterior and posterior perirenal fascia as well as the lateral conal fascia on the left side. No peripancreatic collection. No pancreatic ductal dilatation or intraductal calculi are identified. Spleen: The spleen is unremarkable. Adrenal Glands: There is a fat-density nodule in the right adrenal gland measuring approximately 1.8 2.0 3.1 cm, consistent with an adrenal myelolipoma. The left adrenal gland is unremarkable. Kidneys and Retroperitoneum: The kidneys are unremarkable. No hydronephrosis or renal calculi are identified. No retroperitoneal lymphadenopathy is seen. Bowel and Appendix: Postsurgical changes of prior gastric bypass surgery are noted, with the gastrojejunal anastomosis appropriately positioned and demonstrating unremarkable morphology, without evidence of leakage or obstruction. A few fluid-filled small bowel loops are present, without significant dilatation, measuring up to approximately 2.0 cm, likely representing ileus. The appendix is unremarkable (series 2, image 67/110). Mesentery and Aorta: No ascites or abnormal mesenteric lymphadenopathy is identified. The abdominal aorta is unremarkable. Pelvic Viscera: The uterus is unremarkable. The left adnexa demonstrates a simple-appearing cyst measuring approximately 1.7 cm. The right adnexa is unremarkable. Abdominal Wall: A small fat-containing umbilical hernia is present, measuring approximately 0.5 cm. Bones: Small central disc protrusions are noted at the L4L5 and L5S1 levels, causing mild thecal sac indentation. Impression: * Imaging findings consistent with acute pancreatitis, manifested by pancreatic enlargement, indistinct pancreatic margins, and surrounding peripancreatic inflammatory changes, without evidence of pancreatic ductal dilatation or calculi. Recommend laboratory and clinical parameters correlation. * Hepatomegaly with diffuse fatty infiltration of the liver. * Mild gallbladder overdistension with minimal wall thickening, likely reactive in the setting of pancreatitis, without CT evidence of acute cholecystitis. * Right adrenal myelolipoma measuring up to 2.1 cm. * Postsurgical changes of prior gastric bypass surgery without evidence of obstruction or leak. * Mild small bowel ileus. * Small left adnexal cyst and tiny fat-containing umbilical hernia. Overall, when compared with the limited right upper quadrant sonography performed earlier the same day at 04:19 hours, the current CT demonstrates interval development of imaging features consistent with acute pancreatitis. /[place] DICTATED BY: ABDIAZIZ EARLY MD DATE: 08/29/25 1231 ELECTRONICALLY SIGNED BY: ABDIAZIZ EARLY MD DATE: 08/29/25 1231 [place] [address] IMAGING REPORT Signed PATIENT: JAN SAM MR#: [id number] : 1985 SEX: F AGE: 39 LOCATION: [facility] ORDER 2 STATUS: ADM IN REPORT#: [id number] SERVICE 2 REASON: stones ORDERING PHYSICIAN: ARTURO COTTO FLEXIBLE MACHINING SYSTEM MACHINIST PROCEDURE: HIDAWO - NM HIDA WO EF/CCK Examination Hepatobiliary study History stones (Hx) / stones, Statics (DICOM Hx) (DICOM Hx) Technique 6.5 mCi Tc-99m mebrofenin were administered intravenously followed by acquisition of planar images of the abdomen. Findings Following administration of radiotracer, there is prompt appearance of normal hepatic contours, followed by appearance of activity in unremarkable appearing bile ducts. There is prompt filling of the gallbladder. The study is negative for acute cholecystitis. IMPRESSION: Negative HIDA study. No evidence of cholecystitis. /[place] DICTATED BY: BRAD BERRY Jr., MD DATE: 08/29/251915 ELECTRONICALLY SIGNED BY: BRAD BERRY Jr., MD DATE: 08/29/251915 [place] [address] [place] [address] IMAGING REPORT Signed PATIENT: JAN SAM MR#: [id number] : 1985 SEX: F AGE: 39 LOCATION: [facility] ORDER 7 STATUS: REG REPORT#: [id number] SERVICE 6 REASON: Adominal Pain ORDERING PHYSICIAN: ЕКАТЕРИНА MARTINES MD PROCEDURE: ABDRUQLTD - US ABDOMINAL RUQ\LTD EXAM: US Abdomen, Right Upper Quadrant. CLINICAL HISTORY: Abdominal Pain TECHNIQUE: Right upper quadrant sonography performed with image documentation. COMPARISON: None provided. FINDINGS: The evaluation is limited due to bowel gas. LIVER: The liver is enlarged, measuring 19.2 cm in length, and demonstrates diffuse increased echogenicity, suggestive of fatty infiltration. The main portal vein is patent and demonstrates hepatopetal flow. GALLBLADDER: The gallbladder is distended and demonstrates tiny echogenic foci, which may represent sludge/sludge balls or tiny calculi. The gallbladder wall is within normal limits, measuring 2 mm. No pericholecystic fluid is demonstrated. The sonographic Lopez's sign is positive as per the Technologist's note. COMMON BILE DUCT: No dilation. Measures 5 mm. PANCREAS: The pancreas is obscured by bowel gas. RIGHT KIDNEY: Unremarkable. Normal renal contours. No renal mass or calculus. No hydronephrosis. Right kidney measures 10.7 x 3.7 x 5.1 cm. IMPRESSION: A distended gallbladder with sludge or tiny calculi without sonographic features of acute cholecystitis. Positive sonographic Lopez sign as per the Technologist's note, of unclear significance. Suggest clinical correlation, follow-up, or further evaluation as clinically indicated. Hepatomegaly with moderate fatty change. /[place] DICTATED BY: BRAD BERRY Jr., MD DATE: 08/29/25745 ELECTRONICALLY SIGNED BY: BRAD BERRY Jr., MD DATE: 08/29/25745 Assessment/Plan: PROBLEM LIST: Status post cholecystectomy Acute cholecystitis Hypertension POA Discharge Instructions: Diagnosis: Status post cholecystectomy Condition: Stable Diet: Clear liquids, advance to regular diet as tolerated. Avoid fatty or greasy foods initially. Activity: Activity as tolerated. No heavy lifting >10 lbs for 12 weeks. Medications: Take prescribed medications as directed. Use pain medications as needed. Wound Care: Keep incisions clean and dry. Follow-Up: General Surgery in 1-2 weeks and PCP in 1-2 days. Return Precautions: Fever, worsening pain, vomiting, inability to tolerate PO, incision redness or drainage, chest pain, or SOB. Home Medications: Active Scripts Acetaminophen with Codeine (Acetaminophen-Cod #3 Tablet) 300 Mg-30 Mg Tablet, 1 TAB PO Q6HPRN PRN for pain for 3 Days, #12 TAB 0 Refills Prov:ERICA RUTH MD 09/01/25 Reported Medications Hydroxyzine HCl (Hydroxyzine HCl) 25 Mg Tablet, 1 TAB PO BID for anxiety for 30 Days, #60 TAB 0 Refills 08/30/25 Lisinopril (Lisinopril) 30 Mg Tablet, 1 TAB PO BID for 30 Days, #30 TAB 0 Refills 08/30/25 Hydrochlorothiazide (Hydrochlorothiazide) 12.5 Mg Tablet, 5 MG PO DAILY, TAB 08/30/25 Gabapentin (Gabapentin) 100 Mg Capsule, 3 CAP PO TID for 30 Days, #90 CAP 0 Refills 08/30/25 Time spent arranging discharge: 1-30 minutes ATTESTATION BY PHYSICIAN I have seen and examined the patient. I reviewed the documentation, medical decision making, and treatment plan as noted by the resident physician above. I agree with the findings and plan of care. ERICA RUTH MD [facility] MD Sep 01, 2025 14:52
--- NOTE | 2025-09-01 16:00 | NUR ---
DC INSTRUCTIONS GIVEN AND ACKNOWLEDGED. IV REMOVED
== END 2025-09-01 16:30 | disposition home or self-care (01) | DRG 417 ==
LOC: EDH 04:50 → EDHIP 04:51 → 3CH 10:55
PROVIDERS: ADMIT Family Medicine; ATTEND Family Medicine
PROC: 0FT44ZZ Resection of Gallbladder, Percutaneous Endoscopic Approach (ICD-10-PCS; principal; 2025-08-31 09:00)
DX: K80.00 Calculus of gallbladder with acute cholecystitis without obstruction (principal); K85.90 Acute pancreatitis without necrosis or infection, unspecified; E11.9 Type 2 diabetes mellitus without complications; I10 Essential (primary) hypertension; K76.0 Fatty (change of) liver, not elsewhere classified; K56.7 Ileus, unspecified; I25.10 Atherosclerotic heart disease of native coronary artery without angina pectoris; E78.00 Pure hypercholesterolemia, unspecified; E83.42 Hypomagnesemia; K82.8 Other specified diseases of gallbladder; K21.9 Gastro-esophageal reflux disease without esophagitis; E87.6 Hypokalemia; Z86.73 Personal history of transient ischemic attack (TIA), and cerebral infarction without residual deficits; Z98.84 Bariatric surgery status; Z79.899 Other long term (current) drug therapy
CPT/HCPCS: 36415; 71045; 74176; 76705; 78226; 80048; 80053; 80061; 80076; 80305; 81001; 81025; 82140; 82150; 82550; 82948; 83036; 83605; 83690; 83735; 83880; 84132; 84145; 84439; 84443; 84481; 84703; 85025; 85027; 87040; 87086; 87635; 87804; 93005; 96372; 96374; 96375; 99285; A9537; G0378; J0330; J1100; J1171; J1644; J2003; J2250; J2371; J2405; J2470; J2543; J2704; J2710; J2795; J3010; J3475; J3490; J7030; A4216; A4222; A4223; A4649; C1769